=== PATIENT | female | born 1990 | race Two or more races ===

== ENCOUNTER 2019-03-15 12:47 | Outpatient (CLI) | payer OTHER | END 2019-03-15 12:57 | disposition home or self-care (01) | LOC: RAD 12:47 | DX: J18.8 Other pneumonia, unspecified organism (principal) ==

== ENCOUNTER 2019-03-30 11:57 | Outpatient (CLI) | payer OTHER | END 2019-03-30 14:06 | disposition home or self-care (01) | LOC: NST 11:57 | DX: Z34.83 Encounter for supervision of other normal pregnancy, third trimester (principal) ==

== ENCOUNTER 2019-04-07 14:11 | Outpatient (CLI) | payer OTHER | END 2019-04-07 15:46 | disposition home or self-care (01) | LOC: NST 14:11 | DX: Z34.83 Encounter for supervision of other normal pregnancy, third trimester (principal) ==

== ENCOUNTER 2019-04-10 12:10 | Outpatient (CLI) | payer OTHER | END 2019-04-10 13:34 | disposition home or self-care (01) | LOC: OBS/DEL 12:10 | DX: O47.1 False labor at or after 37 completed weeks of gestation (principal); Z34.03 Encounter for supervision of normal first pregnancy, third trimester ==